=== PATIENT | male | born 1970 | race African-American/Black ===

== ENCOUNTER 2020-10-10 19:51 | Emergency (ER) | payer OTHER ==
[2020-10-10 19:57] VITALS: BP 114/76; PULSE 65; TEMP 98; BMI 26.4
[2020-10-10] MEDS ORDERED: SILVER SULFADIAZINE 1% TOP CREAM 50 GM JAR TP ONE ×2 (20:58→21:00)
== END 2020-10-10 21:38 | disposition home or self-care (01) ==
LOC: JER 19:51
DX: S81.002A Unspecified open wound, left knee, initial encounter (principal); S50.311A Abrasion of right elbow, initial encounter; F10.10 Alcohol abuse, uncomplicated
CPT/HCPCS: 99283-25

== ENCOUNTER 2020-10-10 21:52 | Inpatient (IN) | payer OTHER ==
[2020-10-10 17:11] VITALS: BMI 23.3
[2020-10-10] MEDS ORDERED: guaiFENesin 200 MG/10 ML 10 ML UNIT-DOSE CUPS PO PRN (23:23)
[2020-10-10] MEDS ORDERED: IBUPROFEN 400 MG TABLET (FP) PO PRN (23:23)
[2020-10-10] MEDS ORDERED: MAGNESIUM CITRATE 300 ML BOTTLE PO PRN (23:23)
[2020-10-10] MEDS ORDERED: NICOTINE POLACRILEX 4 MG GUM BC PRN (23:23)
[2020-10-10] MEDS ORDERED: ACETAMINOPHEN 325 MG TABLET (FP) PO PRN (23:23)
[2020-10-10] MEDS ORDERED: P-EPHED 60MG/TRIPROLIDI 2.5MG TABLET PO PRN (23:23)
[2020-10-10] MEDS ORDERED: LOPERAMIDE HCL 2 MG CAPSULE PO PRN (23:23)
[2020-10-10] MEDS ORDERED: MAG HYDROX/AL HYDROX/SIMETH 30 ML UNIT-DOSE CUP PO PRN (23:23)
[2020-10-10] MEDS ORDERED: MAGNESIUM HYDROX 2400MG/30ML ORAL SUSPENSION 30 ML CUP PO PRN (23:23)
[2020-10-11 04:26] VITALS: TEMP 97.3
[2020-10-11] MEDS: MELATONIN 5 MG TABLETS PO SCH ×2 (06:57→21:46)
[2020-10-11] MEDS: hydrOXYzine PAMOATE 25 MG CAPSULE (FP) PO SCH ×5 (06:58→21:47)
[2020-10-11] MEDS: NICOTINE 21 MG/24 HOURS TOPICAL PATCH TD SCH (10:03)
[2020-10-11] MEDS: PRENATAL VITAMINS W/ FOLIC ACID TABLET (FP) PO SCH (10:03)
[2020-10-11 10:39] LABS: HEMATOCRIT 39.7 % (35.4-49); HEMOGLOBIN 13.4 GM/dL (11.7-16.9); MCH 30.6 pg (25.7-33.7); MCHC 33.8 g/dl (32.0-35.9); MEAN CELL VOLUME 90.5 fl (80-96); MEAN PLT VOLUME 8.4 fl (7.5-11.1); PLATELET COUNT 329 10^3/uL (134-434); RBC 4.39 M/mm3 (4.00-5.60); RDW 15.8 % (11.9-15.9); WHITE BLOOD COUNT 5.3 K/mm3 (4.0-10.0)
[2020-10-11 10:40] LABS: BLOOD UREA NITROGEN 13.8 mg/dL (7-18); CALCIUM 8.7 mg/dL (8.5-10.1)
[2020-10-11 10:45] LABS: BILIRUBIN,TOTAL 0.1 mg/dL (0.2-1); TOT PROT 6.5 g/dl (6.4-8.2)
[2020-10-11] MEDS: metFORMIN HCL 500 MG TABLET (FP) PO SCH (17:07)
[2020-10-11] MEDS: SILVER SULFADIAZINE 1% TOP CREAM 50 GM JAR TP SCH (21:45)
[2020-10-11] MEDS ORDERED: THIAMINE HCL 100 MG TABLET (FP) PO SCH (22:00)
[2020-10-12] MEDS: metFORMIN HCL 500 MG TABLET (FP) PO SCH (06:56)
[2020-10-12] MEDS: hydrOXYzine PAMOATE 25 MG CAPSULE (FP) PO SCH ×3 (06:56→15:25)
[2020-10-12 08:50] VITALS: BP 137/88; PULSE 77
[2020-10-12] MEDS: PRENATAL VITAMINS W/ FOLIC ACID TABLET (FP) PO SCH (10:03)
[2020-10-12] MEDS: NICOTINE 21 MG/24 HOURS TOPICAL PATCH TD SCH (10:03)
[2020-10-12] MEDS: SILVER SULFADIAZINE 1% TOP CREAM 50 GM JAR TP SCH (10:03)
== END 2020-10-12 15:15 | disposition left against medical advice (07) | DRG 770 ==
LOC: YASAS 21:52 → Y5N 23:41
PROVIDERS: ADMIT Allergy & Immunology; ATTEND Allergy & Immunology
PROC: HZ42ZZZ Group Counseling for Substance Abuse Treatment, Cognitive-Behavioral (ICD-10-PCS; principal; 2020-10-10)
DX: F10.20 Alcohol dependence, uncomplicated (principal); F16.20 Hallucinogen dependence, uncomplicated; F17.210 Nicotine dependence, cigarettes, uncomplicated; E11.9 Type 2 diabetes mellitus without complications; Z79.84 Long term (current) use of oral hypoglycemic drugs; R29.6 Repeated falls; L53.8 Other specified erythematous conditions
CPT/HCPCS: 36415; 80053; 82962; 85027; 86780; C9803; U0003; U0005